=== PATIENT | female | born 1940 | race African-American/Black ===

== ENCOUNTER 2020-08-21 09:20 | Inpatient (IN) | payer MEDICARE, MEDICAID ==
[2020-08-21 09:40] LABS: #Eosinphils 0.2 10x3/uL (0.0-0.5); #Monocytes 0.8 10x3/uL (0.0-1.1); #Neutrophils 5.1 10x3/uL (1.5-8.4); %Basophils 0.4 % (0.0-2.0); %Eosinophils 2.5 % (0.0-6.0); %Lymphocytes 15.1 % (18.0-47.0); %Monocytes 11.4 % (0.0-10.0); %Neutrophils 70.2 % (40.0-75.0); Hemoglobin 11.7 g/dL (12.0-15.5); Mean Corpuscular HGB CONC 32.9 g/dL (32.0-36.0); Mean Corpuscular Hemoglobin 28.6 pg (27.0-33.0); Mean Platelet Volume 11.7 fl (7.4-10.4); Platelet Count 207 10x3/uL (150-450); RBC Distribution Width 15.4 % (11.5-14.5); Red Blood Cell (RBC) Count 4.09 10x6/uL (3.90-5.03); White Blood Cell (WBC) Count 7.3 10x3/uL (3.5-10.5)
[2020-08-21 09:57] LABS: ALT (SGPT) 27 U/L (8-55); AST (SGOT) 31 U/L (5-34); Albumin 3.7 g/dL (3.4-4.8); Alkaline Phosphatase 74 U/L (40-110); Anion Gap 15 mmol/L (10-20); BUN (Urea Nitrogen) 14 mg/dL (9.8-20.1); Bilirubin, Total 0.4 mg/dL (0.2-1.2); Calc. Creatinine Clearance 0 mL/min (70-130); Calcium 8.7 mg/dL (7.8-10.44); Carbon Dioxide 24 mmol/L (23-31); Chloride 105 mmol/L (98-107); Globulin 3.8 g/dL (2.4-3.5); Glucose 179 mg/dL (83-110); Potassium 3.5 mmol/L (3.5-5.1); Protein, Total 7.5 g/dL (5.8-8.1); Sodium 140 mmol/L (136-145)
[2020-08-21] MEDS ORDERED: Nitroglycerin 0.4 MG TAB (25 Tab Bottle) SL PRN (10:26)
[2020-08-21] MEDS ORDERED: Dextrose 50% Abboject 50 ML SYRINGE SLOW IVP PRN (10:50)
[2020-08-21] MEDS ORDERED: HumaLOG 300 UNITS/3 ML VIAL SC PRN ×2 (10:50)
[2020-08-21] MEDS ORDERED: Dextrose 5% in Water 1,000 ML IV PRN (10:50)
[2020-08-21 11:49] LABS: Troponin I 0.189 ng/mL (< 0.028)
[2020-08-21 14:05] LABS: Troponin I 0.376 ng/mL (< 0.028)
[2020-08-21 15:54] VITALS: BMI 38.0
[2020-08-21] MEDS: Carvedilol 6.25 MG TAB PO SCH (16:44)
[2020-08-21 16:50] LABS: Troponin I 0.486 ng/mL (< 0.028)
[2020-08-21] MEDS ORDERED: Carvedilol 6.25 MG TAB PO SCH (17:00)
[2020-08-21] MEDS ORDERED: Carvedilol 25 MG TAB PO SCH (17:00)
[2020-08-21] MEDS: Atorvastatin Calcium 40 MG TAB PO SCH (21:13)
[2020-08-21] MEDS: Famotidine 20 MG TAB PO SCH (21:13)
[2020-08-21] MEDS: TICAGRELOR 90 MG TABLET PO SCH (21:13)
[2020-08-21] MEDS ORDERED: Latanoprost 0.005% Ophth Soln 2.5 ml Bottle EA EYE SCH (23:00)
[2020-08-22 02:23] LABS: SARS-CoV-2 PCR by NAA Not Detected (NotDetected)
[2020-08-22 05:51] LABS: Anion Gap 10 mmol/L (10-20); BUN (Urea Nitrogen) 10 mg/dL (9.8-20.1); Calc. Creatinine Clearance 84 mL/min (70-130); Calcium 8.7 mg/dL (7.8-10.44); Carbon Dioxide 30 mmol/L (23-31); Chloride 104 mmol/L (98-107); Cholesterol 171 mg/dl (< 200 Desired); Glucose 133 mg/dL (83-110); Potassium 3.3 mmol/L (3.5-5.1); Sodium 141 mmol/L (136-145); Triglycerides 97 mg/dL (Less than 150)
[2020-08-22 05:52] LABS: Cardiac Risk 3.3 (Less than 4.5); HDL Cholesterol 52 mg/dL (>60 Neg Risk); LDL Cholesterol, Calculated 100 mg/dL
[2020-08-22] MEDS: Levothyroxine Sodium 112 MCG TAB PO SCH (07:25)
[2020-08-22] MEDS ORDERED: Communication Order-Pharmacy FS SCH (08:45)
[2020-08-22] MEDS ORDERED: Carvedilol 12.5 MG TAB PO SCH (08:45)
[2020-08-22] MEDS: Furosemide 40 MG TAB PO SCH ×2 (08:46→13:45)
[2020-08-22] MEDS: TICAGRELOR 90 MG TABLET PO SCH ×2 (08:46→21:16)
[2020-08-22] MEDS: Famotidine 20 MG TAB PO SCH ×2 (08:46→21:16)
[2020-08-22] MEDS: Potassium Chloride 20 MEQ TAB PO SCH (08:46)
[2020-08-22] MEDS: Carvedilol 12.5 MG TAB PO SCH (08:46)
[2020-08-22] MEDS: Carvedilol 6.25 MG TAB PO SCH (08:51)
[2020-08-22] MEDS ORDERED: Furosemide 40 MG TAB PO SCH (09:00)
[2020-08-22] MEDS ORDERED: Aspirin Chewable 81 MG TAB PO SCH (09:00)
[2020-08-22] MEDS ORDERED: Furosemide 20 MG TAB PO SCH (09:00)
[2020-08-22] MEDS ORDERED: Rivaroxaban 10 MG TAB PO SCH (09:00)
[2020-08-22] MEDS: Atorvastatin Calcium 40 MG TAB PO SCH (21:16)
[2020-08-22] MEDS: Latanoprost 0.005% Ophth Soln 2.5 ml Bottle EA EYE SCH (22:48)
[2020-08-23 05:15] LABS: #Basophils 0.1 10x3/uL (0.0-0.2); #Eosinphils 0.4 10x3/uL (0.0-0.5); #Monocytes 0.9 10x3/uL (0.0-1.1); #Neutrophils 3.2 10x3/uL (1.5-8.4); %Basophils 0.9 % (0.0-2.0); %Eosinophils 6.3 % (0.0-6.0); %Monocytes 15.8 % (0.0-10.0); %Neutrophils 55.7 % (40.0-75.0); Hemoglobin 11.1 g/dL (12.0-15.5); Mean Corpuscular HGB CONC 32.6 g/dL (32.0-36.0); Mean Corpuscular Hemoglobin 28.4 pg (27.0-33.0); Platelet Count 203 10x3/uL (150-450); RBC Distribution Width 15.2 % (11.5-14.5); Red Blood Cell (RBC) Count 3.91 10x6/uL (3.90-5.03); White Blood Cell (WBC) Count 5.8 10x3/uL (3.5-10.5)
[2020-08-23 05:21] LABS: ALT (SGPT) 28 U/L (8-55); AST (SGOT) 32 U/L (5-34); Albumin 3.6 g/dL (3.4-4.8); Alkaline Phosphatase 64 U/L (40-110); Anion Gap 11 mmol/L (10-20); BUN (Urea Nitrogen) 13 mg/dL (9.8-20.1); Bilirubin, Direct 0.2 mg/dL (0.1-0.3); Bilirubin, Total 0.3 mg/dL (0.2-1.2); Calc. Creatinine Clearance 75 mL/min (70-130); Calcium 8.6 mg/dL (7.8-10.44); Carbon Dioxide 30 mmol/L (23-31); Chloride 101 mmol/L (98-107); Globulin 3.3 g/dL (2.4-3.5); Glucose 126 mg/dL (83-110); Magnesium 1.5 mg/dL (1.6-2.6); Potassium 3.3 mmol/L (3.5-5.1); Protein, Total 6.9 g/dL (5.8-8.1); Sodium 139 mmol/L (136-145)
[2020-08-23 06:06] LABS: INR-International Normal Ratio 1.1; PTT 27.3 sec (22.0-33.0); Prothrombin Time 12.4 sec (9.5-12.1)
[2020-08-23] MEDS: Famotidine 20 MG TAB PO SCH ×2 (06:26→06:33)
[2020-08-23] MEDS: Potassium Chloride 20 MEQ TAB PO SCH (06:26)
[2020-08-23] MEDS: Carvedilol 12.5 MG TAB PO SCH ×2 (06:26→08:18)
[2020-08-23] MEDS: Levothyroxine Sodium 112 MCG TAB PO SCH (06:26)
[2020-08-23] MEDS: TICAGRELOR 90 MG TABLET PO SCH ×2 (06:32→20:49)
[2020-08-23] MEDS ORDERED: Nitroglycerin 50 MG/250 ML BOT 250 ML ONE (07:10)
[2020-08-23] MEDS ORDERED: Verapamil 5 MG/2 ML VIAL ONE (07:11)
[2020-08-23] MEDS ORDERED: Adenosine 6 MG/2 ML VIAL ONE (07:11)
[2020-08-23] MEDS ORDERED: Fentanyl 100 MCG/2 ML VIAL ONE (07:12)
[2020-08-23] MEDS ORDERED: Bivalirudin 250 MG VIAL ONE (07:12)
[2020-08-23] MEDS ORDERED: Midazolam HCl 2 mg/2 ml Vial ONE (07:12)
[2020-08-23] MEDS ORDERED: Lidocaine 1% PF 5 ML VIAL ONE (07:13)
[2020-08-23] MEDS: Furosemide 40 MG TAB PO SCH ×2 (08:19→13:55)
[2020-08-23] MEDS ORDERED: Heparin 10,000 UNITS/ 10 ML VIAL ONE (08:20)
[2020-08-23] MEDS ORDERED: Atropine Sulfate 0.4 mg/1 ml Vial ONE (08:38)
[2020-08-23] MEDS: Sodium Chloride 0.9% 1,000 ML IV SCH ×2 (10:25→18:28)
[2020-08-23] MEDS ORDERED: HumaLOG 300 UNITS/3 ML VIAL SC PRN (13:00)
[2020-08-23] MEDS: HumaLOG 300 UNITS/3 ML VIAL SC PRN ×2 (14:02→20:48)
[2020-08-23] MEDS ORDERED: Acetaminophen 325 MG TAB PO PRN (16:54)
[2020-08-23] MEDS: Atorvastatin Calcium 40 MG TAB PO SCH (20:50)
[2020-08-24] MEDS ORDERED: Docusate 100 MG CAP PO SCH ×2 (00:45→21:00)
[2020-08-24] MEDS: Latanoprost 0.005% Ophth Soln 2.5 ml Bottle EA EYE SCH ×2 (01:10→07:53)
[2020-08-24 05:31] LABS: Anion Gap 13 mmol/L (10-20); BUN (Urea Nitrogen) 12 mg/dL (9.8-20.1); Calc. Creatinine Clearance 82 mL/min (70-130); Calcium 8.2 mg/dL (7.8-10.44); Carbon Dioxide 26 mmol/L (23-31); Chloride 103 mmol/L (98-107); Glucose 104 mg/dL (83-110); Potassium 3.5 mmol/L (3.5-5.1); Sodium 138 mmol/L (136-145)
[2020-08-24 05:47] LABS: #Eosinphils 0.3 10x3/uL (0.0-0.5); #Monocytes 0.9 10x3/uL (0.0-1.1); #Neutrophils 3.7 10x3/uL (1.5-8.4); %Basophils 0.3 % (0.0-2.0); %Eosinophils 5.7 % (0.0-6.0); %Monocytes 15.7 % (0.0-10.0); %Neutrophils 63.6 % (40.0-75.0); Hemoglobin 11.1 g/dL (12.0-15.5); Mean Corpuscular HGB CONC 32.6 g/dL (32.0-36.0); Mean Corpuscular Hemoglobin 27.9 pg (27.0-33.0); Mean Corpuscular Volume 85.4 fl (81.6-98.3); Mean Platelet Volume 12.4 fl (7.4-10.4); Platelet Count 179 10x3/uL (150-450); RBC Distribution Width 15.1 % (11.5-14.5); Red Blood Cell (RBC) Count 3.98 10x6/uL (3.90-5.03); White Blood Cell (WBC) Count 5.8 10x3/uL (3.5-10.5)
[2020-08-24] MEDS: Levothyroxine Sodium 112 MCG TAB PO SCH (06:06)
[2020-08-24] MEDS: Sodium Chloride 0.9% 1,000 ML IV SCH (06:06)
[2020-08-24 08:27] VITALS: BP 122/71; TEMP 99.3
[2020-08-24] MEDS: Famotidine 20 MG TAB PO SCH (08:28)
[2020-08-24] MEDS: TICAGRELOR 90 MG TABLET PO SCH (08:28)
[2020-08-24] MEDS: Furosemide 40 MG TAB PO SCH (08:28)
[2020-08-24] MEDS: Potassium Chloride 20 MEQ TAB PO SCH (08:28)
[2020-08-24] MEDS: Carvedilol 12.5 MG TAB PO SCH (08:28)
== END 2020-08-24 11:34 | disposition home or self-care (01) | DRG 247 ==
LOC: CSHERS 09:20 → SUATTDRO 09:20 → CSHTELE 10:26 → UNDOADMOB 14:58 → CSHTELE 14:58 → INTOOBSV 14:58 → OBSVTOIN 08-23 09:28
PROVIDERS: ADMIT Family Medicine; ATTEND Internal Medicine
PROC: 027035Z Dilation of Coronary Artery, One Artery with Two Drug-eluting Intraluminal Devices, Percutaneous Approach (ICD-10-PCS; principal; 2020-08-23)
PROC: 4A023N7 Measurement of Cardiac Sampling and Pressure, Left Heart, Percutaneous Approach (ICD-10-PCS; 2020-08-23)
PROC: B2111ZZ Fluoroscopy of Multiple Coronary Arteries using Low Osmolar Contrast (ICD-10-PCS; 2020-08-23)
PROC: B2151ZZ Fluoroscopy of Left Heart using Low Osmolar Contrast (ICD-10-PCS; 2020-08-23)
DX: I21.4 Non-ST elevation (NSTEMI) myocardial infarction (principal); I25.10 Atherosclerotic heart disease of native coronary artery without angina pectoris; I48.0 Paroxysmal atrial fibrillation; E78.5 Hyperlipidemia, unspecified; E11.9 Type 2 diabetes mellitus without complications; I10 Essential (primary) hypertension; I25.2 Old myocardial infarction; I73.9 Peripheral vascular disease, unspecified; F03.90 Unspecified dementia, unspecified severity, without behavioral disturbance, psychotic disturbance, mood disturbance, and anxiety; E03.9 Hypothyroidism, unspecified; Z79.4 Long term (current) use of insulin; Z86.73 Personal history of transient ischemic attack (TIA), and cerebral infarction without residual deficits; I24.9 Acute ischemic heart disease, unspecified; Z20.822 Contact with and (suspected) exposure to COVID-19
CPT/HCPCS: 36415; 36416; 71045; 80048; 80053; 80061; 80076; 82553; 83735; 83880; 84484; 85025; 85347; 85610; 85730; 87635; 92928; 93005; 93010; 93306; 93458; 94760; C1769; C1874; C1887; C9600; G0378; J0153; J0461; J0583; J1644; J1815; J2250; J3010; U0003; U0005

== ENCOUNTER 2020-09-10 10:59 | Observation (INO) | payer MEDICARE, MEDICAID ==
[2020-09-10] MEDS ORDERED: Rivaroxaban 10 MG TAB ONE (11:30)
[2020-09-10] MEDS ORDERED: TICAGRELOR 90 MG TABLET ONE (11:30)
[2020-09-10] MEDS ORDERED: Carvedilol 6.25 MG TAB ONE (11:30)
[2020-09-10] MEDS ORDERED: Isosorbide Mononitrate 20 MG TAB ONE (11:30)
[2020-09-10] MEDS ORDERED: Senokot S 8.6-50 MG TAB PO PRN (16:19)
[2020-09-10] MEDS ORDERED: Ondansetron PF 4 MG/2 ML Vial IVP PRN (16:19)
[2020-09-10] MEDS ORDERED: Acetaminophen 325 MG TAB PO PRN (16:19)
[2020-09-10] MEDS ORDERED: Dextrose 5% in Water 1,000 ML IV PRN (16:43)
[2020-09-10] MEDS ORDERED: Dextrose 50% Abboject 50 ML SYRINGE SLOW IVP PRN (16:43)
[2020-09-10] MEDS ORDERED: HumaLOG 300 UNITS/3 ML VIAL SC PRN (16:43)
[2020-09-10] MEDS ORDERED: Carvedilol 6.25 MG TAB PO SCH (17:00)
[2020-09-10 18:28] VITALS: BMI 32.3
[2020-09-10 18:37] LABS: CKMB 4.6 ng/mL (0-6.6)
[2020-09-10] MEDS ORDERED: Albuterol Sulfate 2.5 mg/3 ml Neb NEB PRN (19:27)
[2020-09-10] MEDS ORDERED: Donepezil HCl 5 MG TAB PO SCH (21:00)
[2020-09-10] MEDS ORDERED: Atorvastatin Calcium 40 MG TAB PO SCH (21:00)
[2020-09-10] MEDS ORDERED: Rivaroxaban 10 MG TAB PO SCH (21:00)
[2020-09-10] MEDS: Gabapentin 300 MG CAP PO SCH (22:20)
[2020-09-10] MEDS: TICAGRELOR 90 MG TABLET PO SCH (22:20)
[2020-09-11] MEDS ORDERED: Calcium Carbonate 500 MG ChewTAB PO PRN (02:05)
[2020-09-11 04:19] LABS: #Basophils 0.1 10x3/uL (0.0-0.2); #Eosinphils 0.4 10x3/uL (0.0-0.5); #Monocytes 1.1 10x3/uL (0.0-1.1); #Neutrophils 6.3 10x3/uL (1.5-8.4); %Basophils 0.5 % (0.0-2.0); %Eosinophils 3.7 % (0.0-6.0); %Monocytes 11.2 % (0.0-10.0); %Neutrophils 63.5 % (40.0-75.0); Hemoglobin 9.3 g/dL (12.0-15.5); Mean Corpuscular HGB CONC 33.2 g/dL (32.0-36.0); Mean Corpuscular Hemoglobin 28.5 pg (27.0-33.0); Mean Corpuscular Volume 85.9 fl (81.6-98.3); Mean Platelet Volume 11.7 fl (7.4-10.4); Platelet Count 167 10x3/uL (150-450); RBC Distribution Width 16.4 % (11.5-14.5); Red Blood Cell (RBC) Count 3.26 10x6/uL (3.90-5.03); White Blood Cell (WBC) Count 9.9 10x3/uL (3.5-10.5)
[2020-09-11 04:39] LABS: ALT (SGPT) 23 U/L (8-55); AST (SGOT) 35 U/L (5-34); Albumin 3.6 g/dL (3.4-4.8); Alkaline Phosphatase 70 U/L (40-110); Anion Gap 15 mmol/L (10-20); BUN (Urea Nitrogen) 23 mg/dL (9.8-20.1); Bilirubin, Total 0.2 mg/dL (0.2-1.2); Calc. Creatinine Clearance 72 mL/min (70-130); Calcium 8.6 mg/dL (7.8-10.44); Carbon Dioxide 21 mmol/L (23-31); Chloride 104 mmol/L (98-107); Globulin 3.6 g/dL (2.4-3.5); Glucose 153 mg/dL (83-110); Protein, Total 7.2 g/dL (5.8-8.1); Sodium 136 mmol/L (136-145)
[2020-09-11] MEDS ORDERED: Levothyroxine Sodium 125 MCG TAB PO SCH (06:00)
[2020-09-11] MEDS ORDERED: Mometasone/Formoterol 200/5 60 PUFF INH SCH (06:30)
[2020-09-11] MEDS ORDERED: Furosemide 40 MG TAB PO SCH (07:30)
[2020-09-11] MEDS ORDERED: hydrALAZINE 20 MG/ML VIAL SLOW IVP PRN (08:05)
[2020-09-11] MEDS ORDERED: Aspirin 81 mg Enteric Coated Tablet PO SCH (09:00)
[2020-09-11] MEDS ORDERED: Alogliptin 25 MG TAB PO SCH (09:00)
[2020-09-11] MEDS ORDERED: Pioglitazone HCl 45 MG TAB PO SCH (09:00)
[2020-09-11] MEDS ORDERED: Multivitamin W/ Minerals 1 TAB PO SCH (09:00)
[2020-09-11] MEDS: TICAGRELOR 90 MG TABLET PO SCH (09:14)
[2020-09-11] MEDS: Gabapentin 300 MG CAP PO SCH (09:14)
[2020-09-11] MEDS ORDERED: Carvedilol 12.5 MG TAB PO SCH ×2 (09:30→17:00)
[2020-09-11 10:21] LABS: CKMB 3.8 ng/mL (0-6.6)
[2020-09-11 11:53] VITALS: BP 121/60; TEMP 97.3
[2020-09-11] MEDS ORDERED: Rivaroxaban 10 MG TAB PO SCH (18:00)
== END 2020-09-11 17:01 | disposition home or self-care (01) ==
LOC: CSHERS 10:59 → CSHTELE 18:13
PROVIDERS: ADMIT Internal Medicine; ATTEND Internal Medicine
DX: R07.9 Chest pain, unspecified (principal); I11.0 Hypertensive heart disease with heart failure; I50.32 Chronic diastolic (congestive) heart failure; E78.5 Hyperlipidemia, unspecified; I48.0 Paroxysmal atrial fibrillation; Z79.899 Other long term (current) drug therapy; E11.9 Type 2 diabetes mellitus without complications; E03.9 Hypothyroidism, unspecified; Z79.84 Long term (current) use of oral hypoglycemic drugs; Z79.82 Long term (current) use of aspirin; I25.10 Atherosclerotic heart disease of native coronary artery without angina pectoris; Z95.5 Presence of coronary angioplasty implant and graft; E66.9 Obesity, unspecified; Z79.01 Long term (current) use of anticoagulants
CPT/HCPCS: 36415; 36416; 80053; 82553; 84484; 85025; 96374; G0378; J2405

== ENCOUNTER 2020-09-10 10:59 | Emergency (ER) | payer MEDICARE, MEDICAID ==
[2020-09-10] MEDS ORDERED: Nitroglycerin 0.4 MG TAB 1 EACH ONE (11:46)
[2020-09-10] MEDS ORDERED: Aspirin Chewable 81 MG TAB ONE (11:46)
[2020-09-11 10:41] LABS: #Eosinphils 0.2 10x3/uL (0.0-0.5); #Monocytes 0.8 10x3/uL (0.0-1.1); #Neutrophils 5.2 10x3/uL (1.5-8.4); %Basophils 0.5 % (0.0-2.0); %Eosinophils 3.3 % (0.0-6.0); %Lymphocytes 14.4 % (18.0-47.0); %Monocytes 10.3 % (0.0-10.0); %Neutrophils 70.4 % (40.0-75.0); Hemoglobin 9.7 g/dL (12.0-15.5); Mean Corpuscular HGB CONC 33.4 g/dL (32.0-36.0); Mean Corpuscular Hemoglobin 28.7 pg (27.0-33.0); Mean Corpuscular Volume 85.8 fl (81.6-98.3); Mean Platelet Volume 11.4 fl (7.4-10.4); Platelet Count 174 10x3/uL (150-450); RBC Distribution Width 16.3 % (11.5-14.5); Red Blood Cell (RBC) Count 3.38 10x6/uL (3.90-5.03); White Blood Cell (WBC) Count 7.4 10x3/uL (3.5-10.5)
[2020-09-11 10:50] LABS: CKMB 5.1 ng/mL (0-6.6)
[2020-09-11 10:53] LABS: Chloride 104 mmol/L (98-107); Sodium 139 mmol/L (136-145)
[2020-09-11 10:54] LABS: BUN (Urea Nitrogen) 24 mg/dL (9.8-20.1); Bilirubin, Total 0.3 mg/dL (0.2-1.2); Calc. Creatinine Clearance 0 mL/min (70-130); Calcium 8.8 mg/dL (7.8-10.44); Carbon Dioxide 23 mmol/L (23-31); Glucose 171 mg/dL (83-110); Protein, Total 6.8 g/dL (5.8-8.1)
[2020-09-11 10:55] LABS: ALT (SGPT) 22 U/L (8-55); AST (SGOT) 28 U/L (5-34); Albumin 3.8 g/dL (3.4-4.8); Alkaline Phosphatase 57 U/L (40-110)
[2020-09-11 11:01] LABS: Anion Gap 16 mmol/L (10-20)
== END 2020-09-10 17:16 | disposition admitted as inpatient to this hospital (09) ==
LOC: CSHERS 10:59
DX: Z53.21 Procedure and treatment not carried out due to patient leaving prior to being seen by health care provider (principal)
CPT/HCPCS: 71045; 82553; 83880; 93005; 93010; 36415-59

== ENCOUNTER 2020-09-14 15:59 | Inpatient (IN) | payer MEDICARE, MEDICAID ==
[2020-09-14 16:47] LABS: #Eosinphils 0.1 10x3/uL (0.0-0.5); #Monocytes 0.9 10x3/uL (0.0-1.1); #Neutrophils 8.6 10x3/uL (1.5-8.4); %Basophils 0.2 % (0.0-2.0); %Eosinophils 0.8 % (0.0-6.0); %Lymphocytes 7.9 % (18.0-47.0); %Monocytes 8.7 % (0.0-10.0); %Neutrophils 81.6 % (40.0-75.0); Hemoglobin 7.2 g/dL (12.0-15.5); Mean Corpuscular HGB CONC 32.6 g/dL (32.0-36.0); Mean Corpuscular Hemoglobin 29.5 pg (27.0-33.0); Mean Corpuscular Volume 90.6 fl (81.6-98.3); Mean Platelet Volume 12.3 fl (7.4-10.4); Platelet Count 166 10x3/uL (150-450); RBC Distribution Width 18.2 % (11.5-14.5); Red Blood Cell (RBC) Count 2.44 10x6/uL (3.90-5.03); White Blood Cell (WBC) Count 10.5 10x3/uL (3.5-10.5)
[2020-09-14 17:03] LABS: ALT (SGPT) 24 U/L (8-55); AST (SGOT) 27 U/L (5-34); Albumin 3.6 g/dL (3.4-4.8); Alkaline Phosphatase 53 U/L (40-110); Anion Gap 16 mmol/L (10-20); BUN (Urea Nitrogen) 19 mg/dL (9.8-20.1); Bilirubin, Total 0.3 mg/dL (0.2-1.2); Calc. Creatinine Clearance 0 mL/min (70-130); Calcium 8.3 mg/dL (7.8-10.44); Carbon Dioxide 21 mmol/L (23-31); Chloride 103 mmol/L (98-107); Globulin 2.9 g/dL (2.4-3.5); Glucose 188 mg/dL (83-110); Potassium 4.3 mmol/L (3.5-5.1); Protein, Total 6.5 g/dL (5.8-8.1); Sodium 136 mmol/L (136-145)
[2020-09-14] MEDS ORDERED: Pantoprazole 40 MG VIAL ONE (18:24)
[2020-09-14] MEDS ORDERED: Nitroglycerin 0.4 MG TAB (25 Tab Bottle) SL PRN (19:48)
[2020-09-14] MEDS ORDERED: Pantoprazole 40 MG VIAL IVP SCH (20:00)
[2020-09-14 20:52] VITALS: BMI 34.0
[2020-09-14 21:01] LABS: INR-International Normal Ratio 1.3
[2020-09-14 21:03] LABS: Troponin I 0.102 ng/mL (< 0.028)
[2020-09-14] MEDS: Atorvastatin Calcium 40 MG TAB PO SCH (21:48)
[2020-09-14] MEDS: Sodium Chloride 0.9% 1,000 ML IV SCH (21:49)
[2020-09-14] MEDS: Pantoprazole 80 MG in Sodium Chloride 0.9% 100 ML IVP SCH (23:14)
[2020-09-14 23:32] LABS: Troponin I 0.101 ng/mL (< 0.028)
[2020-09-15 05:40] LABS: #Eosinphils 0.2 10x3/uL (0.0-0.5); #Neutrophils 6.4 10x3/uL (1.5-8.4); %Basophils 0.3 % (0.0-2.0); %Eosinophils 2.2 % (0.0-6.0); %Lymphocytes 16.3 % (18.0-47.0); %Monocytes 11.2 % (0.0-10.0); %Neutrophils 69.1 % (40.0-75.0); Hemoglobin 7.6 g/dL (12.0-15.5); Mean Corpuscular HGB CONC 32.3 g/dL (32.0-36.0); Mean Corpuscular Volume 89.7 fl (81.6-98.3); Mean Platelet Volume 12.1 fl (7.4-10.4); Platelet Count 154 10x3/uL (150-450); RBC Distribution Width 17.4 % (11.5-14.5); Red Blood Cell (RBC) Count 2.62 10x6/uL (3.90-5.03); White Blood Cell (WBC) Count 9.3 10x3/uL (3.5-10.5)
[2020-09-15 05:47] LABS: Anion Gap 12 mmol/L (10-20); BUN (Urea Nitrogen) 17 mg/dL (9.8-20.1); Calc. Creatinine Clearance 78 mL/min (70-130); Calcium 8.1 mg/dL (7.8-10.44); Carbon Dioxide 25 mmol/L (23-31); Chloride 106 mmol/L (98-107); Glucose 157 mg/dL (83-110); Potassium 3.6 mmol/L (3.5-5.1); Sodium 139 mmol/L (136-145)
[2020-09-15] MEDS ORDERED: Levothyroxine Sodium 112 MCG TAB ONE (06:09)
[2020-09-15] MEDS: Levothyroxine Sodium 112 MCG TAB PO SCH (06:09)
[2020-09-15] MEDS ORDERED: Alogliptin 25 MG TAB PO SCH (09:00)
[2020-09-15] MEDS: Carvedilol 6.25 MG TAB PO SCH ×2 (10:30→16:50)
[2020-09-15] MEDS: Sodium Chloride 0.9% 1,000 ML IV SCH (11:31)
[2020-09-15] MEDS ORDERED: Dextrose 5% in Water 1,000 ML IV PRN (13:12)
[2020-09-15] MEDS ORDERED: Dextrose 50% Abboject 50 ML SYRINGE SLOW IVP PRN (13:12)
[2020-09-15 15:25] LABS: #Eosinphils 0.4 10x3/uL (0.0-0.5); #Monocytes 1.3 10x3/uL (0.0-1.1); #Neutrophils 7.5 10x3/uL (1.5-8.4); %Basophils 0.3 % (0.0-2.0); %Eosinophils 3.8 % (0.0-6.0); %Lymphocytes 14.8 % (18.0-47.0); %Monocytes 11.6 % (0.0-10.0); %Neutrophils 68.6 % (40.0-75.0); Hemoglobin 9.5 g/dL (12.0-15.5); Mean Corpuscular HGB CONC 33.2 g/dL (32.0-36.0); Mean Corpuscular Hemoglobin 29.6 pg (27.0-33.0); Mean Corpuscular Volume 89.1 fl (81.6-98.3); Mean Platelet Volume 11.8 fl (7.4-10.4); Platelet Count 156 10x3/uL (150-450); RBC Distribution Width 17.9 % (11.5-14.5); Red Blood Cell (RBC) Count 3.21 10x6/uL (3.90-5.03); White Blood Cell (WBC) Count 10.9 10x3/uL (3.5-10.5)
[2020-09-15 16:41] LABS: SARS-CoV-2 PCR by NAA Not Detected (NotDetected)
[2020-09-15] MEDS: Mometasone/Formoterol 200/5 60 PUFF INH SCH ×2 (19:05→19:55)
[2020-09-15] MEDS: Atorvastatin Calcium 40 MG TAB PO SCH (20:21)
[2020-09-15] MEDS: Pantoprazole 80 MG in Sodium Chloride 0.9% 100 ML IVP SCH (21:37)
[2020-09-16] MEDS: Sodium Chloride 0.9% 1,000 ML IV SCH (03:05)
[2020-09-16] MEDS: Levothyroxine Sodium 112 MCG TAB PO SCH (05:32)
[2020-09-16 06:48] LABS: #Eosinphils 0.6 10x3/uL (0.0-0.5); #Monocytes 1.1 10x3/uL (0.0-1.1); #Neutrophils 6.5 10x3/uL (1.5-8.4); %Basophils 0.3 % (0.0-2.0); %Eosinophils 5.8 % (0.0-6.0); %Lymphocytes 13.3 % (18.0-47.0); %Monocytes 11.3 % (0.0-10.0); %Neutrophils 68.7 % (40.0-75.0); Hemoglobin 9.1 g/dL (12.0-15.5); Mean Corpuscular HGB CONC 32.6 g/dL (32.0-36.0); Mean Corpuscular Hemoglobin 29.5 pg (27.0-33.0); Mean Corpuscular Volume 90.6 fl (81.6-98.3); Mean Platelet Volume 12.3 fl (7.4-10.4); Platelet Count 165 10x3/uL (150-450); RBC Distribution Width 18.1 % (11.5-14.5); Red Blood Cell (RBC) Count 3.08 10x6/uL (3.90-5.03); White Blood Cell (WBC) Count 9.4 10x3/uL (3.5-10.5)
[2020-09-16] MEDS: Mometasone/Formoterol 200/5 60 PUFF INH SCH ×2 (06:56→20:20)
[2020-09-16 07:01] LABS: Anion Gap 14 mmol/L (10-20); BUN (Urea Nitrogen) 13 mg/dL (9.8-20.1); Calc. Creatinine Clearance 78 mL/min (70-130); Carbon Dioxide 24 mmol/L (23-31); Chloride 106 mmol/L (98-107); Glucose 131 mg/dL (83-110); Sodium 140 mmol/L (136-145)
[2020-09-16] MEDS: Carvedilol 6.25 MG TAB PO SCH ×2 (08:30→18:21)
[2020-09-16] MEDS: Pantoprazole 80 MG in Sodium Chloride 0.9% 100 ML IVP SCH (10:30)
[2020-09-16] MEDS ORDERED: PROPOFOL 40 ML ONE (14:53)
[2020-09-16] MEDS ORDERED: GoLYTELY 4,000 ml Bottle PO SCH (19:26)
[2020-09-16] MEDS: Atorvastatin Calcium 40 MG TAB PO SCH (20:26)
[2020-09-17] MEDS: Sodium Chloride 0.9% 1,000 ML IV SCH (01:30)
[2020-09-17] MEDS: Pantoprazole 80 MG in Sodium Chloride 0.9% 100 ML IVP SCH ×2 (04:45→20:43)
[2020-09-17 05:21] LABS: #Eosinphils 0.4 10x3/uL (0.0-0.5); #Monocytes 1.1 10x3/uL (0.0-1.1); #Neutrophils 7.4 10x3/uL (1.5-8.4); %Basophils 0.3 % (0.0-2.0); %Eosinophils 3.7 % (0.0-6.0); %Monocytes 11.1 % (0.0-10.0); %Neutrophils 72.4 % (40.0-75.0); Hemoglobin 9.9 g/dL (12.0-15.5); Mean Corpuscular HGB CONC 32.2 g/dL (32.0-36.0); Mean Corpuscular Hemoglobin 28.9 pg (27.0-33.0); Mean Corpuscular Volume 89.8 fl (81.6-98.3); Mean Platelet Volume 11.5 fl (7.4-10.4); Platelet Count 172 10x3/uL (150-450); RBC Distribution Width 18.5 % (11.5-14.5); Red Blood Cell (RBC) Count 3.42 10x6/uL (3.90-5.03); White Blood Cell (WBC) Count 10.2 10x3/uL (3.5-10.5)
[2020-09-17 05:52] LABS: Anion Gap 13 mmol/L (10-20); BUN (Urea Nitrogen) 7 mg/dL (9.8-20.1); Calc. Creatinine Clearance 83 mL/min (70-130); Calcium 8.2 mg/dL (7.8-10.44); Carbon Dioxide 25 mmol/L (23-31); Chloride 107 mmol/L (98-107); Glucose 140 mg/dL (83-110); Magnesium 1.7 mg/dL (1.6-2.6); Potassium 3.6 mmol/L (3.5-5.1); Sodium 141 mmol/L (136-145)
[2020-09-17] MEDS: Levothyroxine Sodium 112 MCG TAB PO SCH (07:15)
[2020-09-17] MEDS: Mometasone/Formoterol 200/5 60 PUFF INH SCH ×2 (07:30→20:15)
[2020-09-17] MEDS ORDERED: Magnesium 2 GM/50 ML 2 GM in Premix Bag 1 BAG IVPB SCH (08:00)
[2020-09-17] MEDS ORDERED: Potassium Chloride 20 MEQ TAB PO SCH ×2 (08:00→15:00)
[2020-09-17] MEDS ORDERED: TICAGRELOR 90 MG TABLET PO SCH (09:00)
[2020-09-17] MEDS: Carvedilol 6.25 MG TAB PO SCH (09:00)
[2020-09-17] MEDS ORDERED: PROPOFOL 20 ML ONE ×2 (13:30→13:58)
[2020-09-17] MEDS: Carvedilol 12.5 MG TAB PO SCH (17:08)
[2020-09-17] MEDS: Atorvastatin Calcium 40 MG TAB PO SCH (20:44)
[2020-09-18] MEDS: Sodium Chloride 0.9% 1,000 ML IV SCH ×2 (04:00→15:25)
[2020-09-18 05:18] LABS: #Eosinphils 0.4 10x3/uL (0.0-0.5); #Monocytes 0.9 10x3/uL (0.0-1.1); #Neutrophils 6.3 10x3/uL (1.5-8.4); %Basophils 0.3 % (0.0-2.0); %Eosinophils 4.6 % (0.0-6.0); %Lymphocytes 11.3 % (18.0-47.0); %Monocytes 10.6 % (0.0-10.0); Hemoglobin 9.2 g/dL (12.0-15.5); Mean Corpuscular HGB CONC 32.2 g/dL (32.0-36.0); Mean Corpuscular Hemoglobin 28.9 pg (27.0-33.0); Mean Corpuscular Volume 89.9 fl (81.6-98.3); Mean Platelet Volume 11.3 fl (7.4-10.4); Platelet Count 174 10x3/uL (150-450); RBC Distribution Width 17.9 % (11.5-14.5); Red Blood Cell (RBC) Count 3.18 10x6/uL (3.90-5.03); White Blood Cell (WBC) Count 8.7 10x3/uL (3.5-10.5)
[2020-09-18 05:29] LABS: Anion Gap 11 mmol/L (10-20); BUN (Urea Nitrogen) 6 mg/dL (9.8-20.1); Calc. Creatinine Clearance 80 mL/min (70-130); Carbon Dioxide 24 mmol/L (23-31); Chloride 109 mmol/L (98-107); Glucose 127 mg/dL (83-110); Potassium 4.1 mmol/L (3.5-5.1); Sodium 140 mmol/L (136-145)
[2020-09-18] MEDS: Levothyroxine Sodium 112 MCG TAB PO SCH (05:42)
[2020-09-18] MEDS: Mometasone/Formoterol 200/5 60 PUFF INH SCH ×2 (08:15→19:43)
[2020-09-18] MEDS: Carvedilol 12.5 MG TAB PO SCH ×2 (08:39→17:01)
[2020-09-18] MEDS: Magnesium Oxide 400 MG TAB PO SCH (08:40)
[2020-09-18] MEDS: TICAGRELOR 90 MG TABLET PO SCH ×2 (08:43→21:51)
[2020-09-18] MEDS: Pantoprazole 80 MG in Sodium Chloride 0.9% 100 ML IVP SCH (11:38)
[2020-09-18 13:45] LABS: Actual Bicarbonate (HCO3a) 23.6 mEq/L (22-28); Base Excess (BEa) -0.2 mEq/L (-2.0 to +3.0); CO2 Tension 35.4 mmHg (35.0-45.0); Calcium, Ionized (arterial) 1.15 mmol/L (1.12-1.30); Carboxyhemoglobin (COHb) 0.5 gm% (0.0-3.0); Hemoglobin (Hb) 10.4 g/dL (12.0-16.0); Potassium - ABG Lab 3.9 mmol/L (3.70-5.30); Puncture Site LRA; pH, Arterial 7.44 (7.35-7.45)
[2020-09-18] MEDS: Atorvastatin Calcium 40 MG TAB PO SCH (21:51)
[2020-09-19] MEDS: Levothyroxine Sodium 112 MCG TAB PO SCH (05:41)
[2020-09-19 05:58] LABS: #Eosinphils 0.4 10x3/uL (0.0-0.5); #Monocytes 1.1 10x3/uL (0.0-1.1); #Neutrophils 9.7 10x3/uL (1.5-8.4); %Basophils 0.2 % (0.0-2.0); %Eosinophils 2.9 % (0.0-6.0); %Lymphocytes 5.7 % (18.0-47.0); %Monocytes 9.3 % (0.0-10.0); %Neutrophils 81.5 % (40.0-75.0); Hemoglobin 9.2 g/dL (12.0-15.5); Mean Corpuscular HGB CONC 32.2 g/dL (32.0-36.0); Mean Corpuscular Hemoglobin 28.9 pg (27.0-33.0); Mean Corpuscular Volume 89.9 fl (81.6-98.3); Mean Platelet Volume 11.6 fl (7.4-10.4); Platelet Count 204 10x3/uL (150-450); RBC Distribution Width 17.3 % (11.5-14.5); Red Blood Cell (RBC) Count 3.18 10x6/uL (3.90-5.03); White Blood Cell (WBC) Count 11.9 10x3/uL (3.5-10.5)
[2020-09-19] MEDS: Mometasone/Formoterol 200/5 60 PUFF INH SCH ×2 (07:40→19:44)
[2020-09-19] MEDS: Sodium Chloride 0.9% 1,000 ML IV SCH ×2 (08:05→16:51)
[2020-09-19] MEDS: Carvedilol 12.5 MG TAB PO SCH ×2 (08:06→16:51)
[2020-09-19] MEDS: Magnesium Oxide 400 MG TAB PO SCH (08:06)
[2020-09-19] MEDS: TICAGRELOR 90 MG TABLET PO SCH ×2 (08:06→20:44)
[2020-09-19] MEDS ORDERED: Communication Order-Pharmacy FS SCH (08:30)
[2020-09-19] MEDS: Atorvastatin Calcium 40 MG TAB PO SCH (20:44)
[2020-09-20 04:31] LABS: INR-International Normal Ratio 1.1; PTT 25.9 sec (22.0-33.0); Prothrombin Time 11.9 sec (9.5-12.1)
[2020-09-20 04:44] LABS: #Eosinphils 0.4 10x3/uL (0.0-0.5); #Monocytes 0.8 10x3/uL (0.0-1.1); #Neutrophils 5.3 10x3/uL (1.5-8.4); %Basophils 0.3 % (0.0-2.0); %Eosinophils 4.7 % (0.0-6.0); %Lymphocytes 12.7 % (18.0-47.0); %Monocytes 10.7 % (0.0-10.0); %Neutrophils 71.2 % (40.0-75.0); ALT (SGPT) 29 U/L (8-55); AST (SGOT) 25 U/L (5-34); Albumin 3.3 g/dL (3.4-4.8); Alkaline Phosphatase 60 U/L (40-110); Anion Gap 12 mmol/L (10-20); BUN (Urea Nitrogen) 10 mg/dL (9.8-20.1); Bilirubin, Total 0.4 mg/dL (0.2-1.2); Calc. Creatinine Clearance 75 mL/min (70-130); Calcium 8.5 mg/dL (7.8-10.44); Carbon Dioxide 25 mmol/L (23-31); Chloride 104 mmol/L (98-107); Globulin 3.1 g/dL (2.4-3.5); Glucose 133 mg/dL (83-110); Hemoglobin 10.1 g/dL (12.0-15.5); Mean Corpuscular HGB CONC 32.1 g/dL (32.0-36.0); Mean Corpuscular Hemoglobin 28.9 pg (27.0-33.0); Mean Platelet Volume 11.5 fl (7.4-10.4); Platelet Count 208 10x3/uL (150-450); Potassium 3.7 mmol/L (3.5-5.1); Protein, Total 6.4 g/dL (5.8-8.1); RBC Distribution Width 17.1 % (11.5-14.5); Sodium 137 mmol/L (136-145); White Blood Cell (WBC) Count 7.4 10x3/uL (3.5-10.5)
[2020-09-20] MEDS: Levothyroxine Sodium 112 MCG TAB PO SCH (06:01)
[2020-09-20] MEDS: Magnesium Oxide 400 MG TAB PO SCH (06:02)
[2020-09-20] MEDS: Carvedilol 12.5 MG TAB PO SCH ×2 (06:02→17:30)
[2020-09-20] MEDS: TICAGRELOR 90 MG TABLET PO SCH ×2 (08:35→20:58)
[2020-09-20] MEDS: Sodium Chloride 0.9% 1,000 ML IV SCH ×3 (09:10→18:02)
[2020-09-20] MEDS ORDERED: Heparin 10,000 UNITS/ 10 ML VIAL ONE (09:56)
[2020-09-20] MEDS ORDERED: Nitroglycerin 50 MG/250 ML BOT 250 ML ONE (09:56)
[2020-09-20] MEDS ORDERED: Adenosine 6 MG/2 ML VIAL ONE (09:56)
[2020-09-20] MEDS ORDERED: Verapamil 5 MG/2 ML VIAL ONE (09:57)
[2020-09-20] MEDS ORDERED: Lidocaine 1% PF 5 ML VIAL ONE (09:58)
[2020-09-20] MEDS ORDERED: Fentanyl 100 MCG/2 ML VIAL ONE (09:58)
[2020-09-20] MEDS ORDERED: Midazolam HCl 5 mg/5 ml Vial ONE (09:59)
[2020-09-20] MEDS: Mometasone/Formoterol 200/5 60 PUFF INH SCH ×2 (10:23→19:15)
[2020-09-20] MEDS ORDERED: Acetaminophen/Codeine 30-300mg Tablet PO PRN ×2 (11:32)
[2020-09-20] MEDS ORDERED: Sodium Chloride 0.9% 200 ML IV PRN (11:32)
[2020-09-20] MEDS ORDERED: Nitroglycerin 0.4 MG TAB (25 Tab Bottle) SL PRN (11:32)
[2020-09-20] MEDS ORDERED: Aspirin 81 mg Enteric Coated Tablet PO SCH (11:45)
[2020-09-20] MEDS: HumaLOG 300 UNITS/3 ML VIAL SC PRN (18:03)
[2020-09-20] MEDS: Atorvastatin Calcium 40 MG TAB PO SCH (20:58)
[2020-09-21] MEDS: Levothyroxine Sodium 112 MCG TAB PO SCH (05:34)
[2020-09-21] MEDS: HumaLOG 300 UNITS/3 ML VIAL SC PRN (05:52)
[2020-09-21] MEDS: Mometasone/Formoterol 200/5 60 PUFF INH SCH (08:22)
[2020-09-21] MEDS ORDERED: Aspirin 81 mg Enteric Coated Tablet PO SCH (09:00)
[2020-09-21] MEDS: Carvedilol 12.5 MG TAB PO SCH (09:32)
[2020-09-21] MEDS: TICAGRELOR 90 MG TABLET PO SCH (09:32)
[2020-09-21] MEDS: Magnesium Oxide 400 MG TAB PO SCH (09:32)
[2020-09-21] MEDS: Sodium Chloride 0.9% 1,000 ML IV SCH (09:33)
[2020-09-21 12:47] VITALS: BP 133/69; TEMP 98.1
== END 2020-09-21 13:05 | disposition home or self-care (01) | DRG 982 ==
LOC: CSHERS 15:59 → CSHTELE 20:37 → OBSVTOIN 20:37
PROVIDERS: ADMIT Family Medicine; ATTEND Internal Medicine
PROC: 30233N1 Transfusion of Nonautologous Red Blood Cells into Peripheral Vein, Percutaneous Approach (ICD-10-PCS; principal; 2020-09-14)
PROC: 0DJ08ZZ Inspection of Upper Intestinal Tract, Via Natural or Artificial Opening Endoscopic (ICD-10-PCS; 2020-09-16)
PROC: 0DJD8ZZ Inspection of Lower Intestinal Tract, Via Natural or Artificial Opening Endoscopic (ICD-10-PCS; 2020-09-17)
PROC: 027034Z Dilation of Coronary Artery, One Artery with Drug-eluting Intraluminal Device, Percutaneous Approach (ICD-10-PCS; 2020-09-20)
PROC: B2161ZZ Fluoroscopy of Right and Left Heart using Low Osmolar Contrast (ICD-10-PCS; 2020-09-20)
DX: K92.2 Gastrointestinal hemorrhage, unspecified (principal); T82.855A Stenosis of coronary artery stent, initial encounter; D62 Acute posthemorrhagic anemia; I24.8 Other forms of acute ischemic heart disease; D68.32 Hemorrhagic disorder due to extrinsic circulating anticoagulants; Z20.822 Contact with and (suspected) exposure to COVID-19; T45.515A Adverse effect of anticoagulants, initial encounter; I48.0 Paroxysmal atrial fibrillation; I10 Essential (primary) hypertension; E78.5 Hyperlipidemia, unspecified; E03.9 Hypothyroidism, unspecified; E11.9 Type 2 diabetes mellitus without complications; I25.118 Atherosclerotic heart disease of native coronary artery with other forms of angina pectoris; J45.909 Unspecified asthma, uncomplicated; E11.51 Type 2 diabetes mellitus with diabetic peripheral angiopathy without gangrene; E83.42 Hypomagnesemia; K64.4 Residual hemorrhoidal skin tags; K57.30 Diverticulosis of large intestine without perforation or abscess without bleeding; K64.8 Other hemorrhoids; Z86.73 Personal history of transient ischemic attack (TIA), and cerebral infarction without residual deficits; Z88.8 Allergy status to other drugs, medicaments and biological substances; Z95.5 Presence of coronary angioplasty implant and graft; Z87.891 Personal history of nicotine dependence; Z90.710 Acquired absence of both cervix and uterus; Z79.01 Long term (current) use of anticoagulants; Z79.84 Long term (current) use of oral hypoglycemic drugs; Z79.890 Hormone replacement therapy; Z79.899 Other long term (current) drug therapy
CPT/HCPCS: 36415; 36416; 36430; 36600; 71045; 80048; 80053; 82274; 82553; 82805; 83735; 84484; 85025; 85347; 85610; 85730; 86850; 86900; 86901; 87635; 92928; 93005; 93010; 93454; 94664; 94760; 96374; 97139; C1769; C1874; C1887; C9113; C9600; G0378; J0153; J1644; J1815; J2250; J2405; J2704; J3010; J3475; J3490; P9016; U0003; U0005

== ENCOUNTER 2020-10-03 09:21 | Outpatient (CLI) | payer MEDICARE, MEDICAID | END 2020-10-03 09:22 | disposition home or self-care (01) | LOC: CSHMAMMO 09:21 | PROVIDERS: ATTEND Physician Assistant | DX: N64.4 Mastodynia (principal) | CPT/HCPCS: 77066; G0279 ==